=== PATIENT | male | born 1955 | race Two or more races ===

== ENCOUNTER 2018-04-23 06:17 | Inpatient (IN) | payer BC ==
[2018-04-19 10:30] LABS: Urine Bacteria NONE SEEN /hpf (None Seen); Urine Blood Negative /uL (Negative); Urine Specific Gravity 1.036 (1.001-1.035); Urine WBC <1 /hpf (0 - 3)
[2018-04-19 10:31] LABS: Basophils # (auto) 0 uL; Basophils % (auto) 0.4 % (0.0-2.0); Eosinophils # (auto) 0.1 uL; Eosinophils % (auto) 2.4 % (0.0-7.0); Hematocrit 48.5 % (41.0-53.0); Hemoglobin 16.2 g/dL (13.5-17.5); Lymphocytes # (auto) 1.9 uL; Lymphocytes % (auto) 34.6 % (10.0-50.0); Mean Corpuscular Hemoglobin 30.3 pg (28.0-32.0); Mean Corpuscular Hgb Conc. 33.4 g/dL (32.0-36.0); Mean Corpuscular Volume 90.8 fL (80.0-100.0); Monocytes # (auto) 0.6 uL; Monocytes % (auto) 11.4 % (0.0-12.0); Neutrophils # (auto) 2.8 uL; Neutrophils % (auto) 51.2 % (37.0-80.0); Nucleated Red Blood Cells % 0.1 %; Platelet Count (auto) 245 10^3/uL (140-450); Red Blood Cells 5.34 10^6/uL (4.5-5.90); Red Cell Distribution Width 13.9 % (11.8-14.3); White Blood Cell 5.5 10^3/uL (4.4-10.8)
[2018-04-19 10:38] LABS: INR 0.93 (0.9-1.15); Partial Thromboplastin Time 29.4 sec (23.78-33.04)
[2018-04-19 10:51] LABS: Potassium 3.9 mmol/L (3.5-5.1)
[2018-04-19 10:58] LABS: Albumin 3.7 g/dL (3.4-5.0); Bilirubin, Total 0.5 mg/dL (0.2-1.0); Calcium 8.6 mg/dL (8.5-10.1); Total Protein 7.2 g/dL (6.4-8.2)
[~2018-04-23] VITALS: Ht 172.7 cm; Wt 125.8 kg
[~2018-04-23 06:17] MED LIST: ALBUAER3 IN; EMPA1TAB PO; GLIP-115 PO
[2018-04-23] MEDS ORDERED: CLINDAMYCIN 600MG IV 50 ML IV ONE (06:57)
[2018-04-23] MEDS ORDERED: TETRACAINE 1% INJ 2 ML VIAL IJ ONE (07:13)
[2018-04-23] MEDS ORDERED: fentaNYL CITRATE 100 MCG/2 ML VL ONE (07:14)
[2018-04-23] MEDS ORDERED: ONDANSETRON HCL 4 MG/2 ML VIAL ONE (07:15)
[2018-04-23] MEDS ORDERED: PROPOFOL 10 MG/ML 20 ML IV ONE ×4 (07:15→09:55)
[2018-04-23] MEDS ORDERED: MORPHINE SULF(PF) 0.5MG/ML 10ML VIAL ONE (07:15)
[2018-04-23] MEDS ORDERED: MIDAZOLAM HCL 1MG/1ML-2 ML VIAL ONE ×2 (07:15→08:12)
[2018-04-23] MEDS ORDERED: SODIUM CHLORIDE LOCK 10 ML ONE (07:15)
[2018-04-23] MEDS ORDERED: TRANEXAMIC ACID 10 ML ONE ×2 (08:28→08:52)
[2018-04-23] MEDS ORDERED: METOCLOPRAMIDE HCL 5MG/ml INJ 2ml VIAL IV ONE (09:00)
[2018-04-23] MEDS ORDERED: diphenhdrAMINE HCL 50 MG/1 ML VL IV PRN (09:00)
[2018-04-23] MEDS ORDERED: HYDROmorphone HCL 2 MG/ML VL IV PRN (09:00)
[2018-04-23] MEDS ORDERED: NALOXONE HCL 0.4 MG/ML VIAL IV PRN (09:00)
[2018-04-23] MEDS ORDERED: ACCU-CHEK COMFORT CURVE STRIP VI ONE (09:00)
[2018-04-23] MEDS ORDERED: TEMAZEPAM 15 MG CAP PO PRN (11:45)
[2018-04-23] MEDS ORDERED: ACETAMINOPHEN 325 MG TAB PO PRN (11:45)
[2018-04-23] MEDS ORDERED: glipiZIDE 5 MG TAB PO SCH ×2 (12:00)
[2018-04-23] MEDS: CLINDAMYCIN 600MG IV 50 ML IV SCH ×2 (15:39→21:20)
[2018-04-23] MEDS: LACTATED RINGER'S 1,000 ML IV SCH (15:39)
[2018-04-23] MEDS: HYDROmorphone HCL 2 MG/ML VL IV PRN ×3 (15:40→22:34)
[2018-04-23] MEDS: SODIUM CHLOR 0.9% PF (SALINE LOCK) 10ML VIAL/SYR IV SCH ×2 (15:40→21:20)
[2018-04-23 15:48] VITALS: BP 123/72
[2018-04-23 17:24] VITALS: BP 123/73
[2018-04-23] MEDS: glipiZIDE 5 MG TAB PO SCH (17:52)
[2018-04-23 21:21] VITALS: BP 110/62
[2018-04-23] MEDS: oxyCODONE ER 10 MG TAB PO SCH (21:21)
[2018-04-23] MEDS: DOCUSATE SOD 100 MG CAP PO SCH (21:21)
[2018-04-24 01:58] VITALS: BP 110/62
[2018-04-24] MEDS: SODIUM CHLOR 0.9% PF (SALINE LOCK) 10ML VIAL/SYR IV SCH ×3 (05:22→21:07)
[2018-04-24] MEDS: CLINDAMYCIN 600MG IV 50 ML IV SCH (05:22)
[2018-04-24] MEDS: HYDROmorphone HCL 2 MG/ML VL IV PRN ×6 (05:23→22:00)
[2018-04-24 05:27] VITALS: BP 103/52
[2018-04-24] MEDS: ONDANSETRON HCL 4 MG/2 ML VIAL IV PRN ×4 (05:33→22:13)
[2018-04-24 07:27] LABS: Hematocrit 42.3 % (41.0-53.0); Hemoglobin 14.2 g/dL (13.5-17.5)
[2018-04-24] MEDS ORDERED: JARDIANCE 10MG PO SCH (08:00)
[2018-04-24 08:09] VITALS: BP 100/58
[2018-04-24] MEDS: glipiZIDE 5 MG TAB PO SCH ×2 (08:13→17:06)
[2018-04-24] MEDS: DOCUSATE SOD 100 MG CAP PO SCH ×2 (09:26→21:08)
[2018-04-24] MEDS: oxyCODONE ER 10 MG TAB PO SCH ×2 (09:26→21:09)
[2018-04-24] MEDS: LACTATED RINGER'S 1,000 ML IV SCH (09:26)
[2018-04-24] MEDS: ENOXAPARIN SOD 40 MG/0.4 ML SYRINGE SC SCH (09:26)
[2018-04-24 12:52] VITALS: BP 113/61
[2018-04-24] MEDS ORDERED: DEXTROSE (50%) 50ML SYRG IV PRN (13:15)
[2018-04-24] MEDS ORDERED: ALBUTEROL SULF 2.5 MG/0.5ML(0.5%) NEB SOLN NEB PRN (13:30)
[2018-04-24] MEDS: GABAPENTIN 100 MG CAP PO SCH ×3 (14:00→21:10)
[2018-04-24] MEDS: InsuLIN REG 1unit/0.01ml Soln (100units/ml) SC SCH ×2 (16:58→21:51)
[2018-04-24] MEDS: ACCU-CHEK COMFORT CURVE STRIP VI SCH ×2 (16:58→21:51)
[2018-04-24 17:00] VITALS: BP 111/73
[2018-04-24] MEDS: HYDROcodone-ACET 10/325MG TAB PO PRN ×2 (17:00→22:45)
[2018-04-24 21:25] VITALS: BP 110/66
[2018-04-25] MEDS: HYDROmorphone HCL 2 MG/ML VL IV PRN ×5 (04:26→19:47)
[2018-04-25] MEDS: LACTATED RINGER'S 1,000 ML IV SCH (04:27)
[2018-04-25 04:36] VITALS: BP 137/81
[2018-04-25] MEDS: GABAPENTIN 100 MG CAP PO SCH ×3 (05:50→21:50)
[2018-04-25] MEDS: SODIUM CHLOR 0.9% PF (SALINE LOCK) 10ML VIAL/SYR IV SCH ×3 (05:50→21:47)
[2018-04-25] MEDS: InsuLIN REG 1unit/0.01ml Soln (100units/ml) SC SCH ×4 (06:17→21:44)
[2018-04-25] MEDS: ACCU-CHEK COMFORT CURVE STRIP VI SCH ×4 (06:18→21:44)
[2018-04-25] MEDS: HYDROcodone-ACET 10/325MG TAB PO PRN (06:18)
[2018-04-25 06:53] LABS: Hemoglobin 13.2 g/dL (13.5-17.5)
[2018-04-25 07:25] LABS: Albumin 3.1 g/dL (3.4-5.0); Calcium 7.7 mg/dL (8.5-10.1); Potassium 3.8 mmol/L (3.5-5.1)
[2018-04-25 07:28] LABS: BUN/Creatinine Ratio 23.3; Bilirubin, Total 1.2 mg/dL (0.2-1.0); Total Protein 6.3 g/dL (6.4-8.2)
[2018-04-25] MEDS: DOCUSATE SOD 100 MG CAP PO SCH ×2 (09:18→21:49)
[2018-04-25] MEDS: EMPAGLIFLOZIN 10 MG PO SCH (09:19)
[2018-04-25] MEDS: glipiZIDE 5 MG TAB PO SCH ×2 (09:19→17:09)
[2018-04-25] MEDS: oxyCODONE ER 10 MG TAB PO SCH ×2 (09:19→21:49)
[2018-04-25] MEDS: ENOXAPARIN SOD 40 MG/0.4 ML SYRINGE SC SCH (09:20)
[2018-04-25 09:29] VITALS: BP 95/62
[2018-04-25 13:37] VITALS: BP 125/76
[2018-04-25 17:35] VITALS: BP 121/66
[2018-04-25 22:00] VITALS: BP 117/60
[2018-04-26] MEDS: HYDROmorphone HCL 2 MG/ML VL IV PRN ×4 (00:25→09:18)
[2018-04-26 04:43] VITALS: BP 119/69
[2018-04-26] MEDS: SODIUM CHLOR 0.9% PF (SALINE LOCK) 10ML VIAL/SYR IV SCH ×3 (05:23→22:08)
[2018-04-26] MEDS: GABAPENTIN 100 MG CAP PO SCH ×3 (05:40→22:00)
[2018-04-26] MEDS: ACCU-CHEK COMFORT CURVE STRIP VI SCH ×4 (06:03→22:03)
[2018-04-26] MEDS: InsuLIN REG 1unit/0.01ml Soln (100units/ml) SC SCH ×4 (06:03→22:00)
[2018-04-26 06:14] LABS: Hematocrit 39.7 % (41.0-53.0); Hemoglobin 13.8 g/dL (13.5-17.5)
[2018-04-26 09:00] VITALS: BP 118/67
[2018-04-26] MEDS: oxyCODONE ER 10 MG TAB PO SCH ×2 (09:17→22:03)
[2018-04-26] MEDS: DOCUSATE SOD 100 MG CAP PO SCH ×2 (09:17→22:03)
[2018-04-26] MEDS: ENOXAPARIN SOD 40 MG/0.4 ML SYRINGE SC SCH (09:17)
[2018-04-26] MEDS: EMPAGLIFLOZIN 10 MG PO SCH (09:18)
[2018-04-26] MEDS: glipiZIDE 5 MG TAB PO SCH ×2 (09:19→17:27)
[2018-04-26 12:35] VITALS: BP 113/68
[2018-04-26] MEDS: HYDROcodone-ACET 10/325MG TAB PO PRN ×2 (12:52→17:27)
[2018-04-26] MEDS: CLINDAMYCIN 600MG IV 50 ML IV SCH ×2 (14:30→22:03)
[2018-04-26] MEDS ORDERED: HYDROmorphone HCL 2 MG/ML VL IV PRN (14:45)
[2018-04-26 17:00] VITALS: BP 98/60
[2018-04-26 19:16] VITALS: BP 98/60
[2018-04-26 22:00] VITALS: BP 105/55
[2018-04-27] MEDS: HYDROcodone-ACET 10/325MG TAB PO PRN ×2 (03:45→11:22)
[2018-04-27 05:00] VITALS: BP 98/52
[2018-04-27] MEDS: SODIUM CHLOR 0.9% PF (SALINE LOCK) 10ML VIAL/SYR IV SCH ×2 (05:33→14:00)
[2018-04-27] MEDS: GABAPENTIN 100 MG CAP PO SCH ×2 (05:33→14:00)
[2018-04-27] MEDS: CLINDAMYCIN 600MG IV 50 ML IV SCH ×2 (05:35→14:00)
[2018-04-27] MEDS: ACCU-CHEK COMFORT CURVE STRIP VI SCH ×2 (06:04→12:01)
[2018-04-27] MEDS: InsuLIN REG 1unit/0.01ml Soln (100units/ml) SC SCH ×2 (06:04→11:30)
[2018-04-27 07:43] LABS: Hematocrit 40.8 % (41.0-53.0); Hemoglobin 13.8 g/dL (13.5-17.5)
[2018-04-27] MEDS: glipiZIDE 5 MG TAB PO SCH (08:38)
[2018-04-27] MEDS: EMPAGLIFLOZIN 10 MG PO SCH (08:39)
[2018-04-27 09:02] VITALS: BP 100/62
[2018-04-27] MEDS: DOCUSATE SOD 100 MG CAP PO SCH (09:30)
[2018-04-27] MEDS: oxyCODONE ER 10 MG TAB PO SCH (09:30)
[2018-04-27] MEDS: ENOXAPARIN SOD 40 MG/0.4 ML SYRINGE SC SCH (09:31)
[2018-04-27 13:23] VITALS: BP 114/65
[2018-04-27 14:28] VITALS: BP 114/65
[2018-04-27] MEDS ORDERED: RIV15T PO (15:01)
[2018-04-27] MEDS ORDERED: HYDR-4683 PO (15:01)
[2018-04-27] MEDS ORDERED: CEPH250C PO (15:01)
== END 2018-04-27 19:26 | disposition home or self-care (01) | DRG 470 ==
LOC: SUR 06:17 → WEST WING 12:33
PROVIDERS: ADMIT Orthopaedic Surgery; ATTEND Internal Medicine
PROC: 0MBN0ZZ Excision of Right Knee Bursa and Ligament, Open Approach (ICD-10-PCS; 2018-04-23)
PROC: 0KNQ0ZZ Release Right Upper Leg Muscle, Open Approach (ICD-10-PCS; 2018-04-23)
PROC: 0SRC0J9 Replacement of Right Knee Joint with Synthetic Substitute, Cemented, Open Approach (ICD-10-PCS; principal; 2018-04-23 07:00)
PROC: 5A09357 Assistance with Respiratory Ventilation, Less than 24 Consecutive Hours, Continuous Positive Airway Pressure (ICD-10-PCS; 2018-04-24)
PROC: 5A09357 Assistance with Respiratory Ventilation, Less than 24 Consecutive Hours, Continuous Positive Airway Pressure (ICD-10-PCS; 2018-04-25)
PROC: 5A09357 Assistance with Respiratory Ventilation, Less than 24 Consecutive Hours, Continuous Positive Airway Pressure (ICD-10-PCS; 2018-04-26)
PROC: 5A09357 Assistance with Respiratory Ventilation, Less than 24 Consecutive Hours, Continuous Positive Airway Pressure (ICD-10-PCS; 2018-04-27)
DX: M17.11 Unilateral primary osteoarthritis, right knee (principal); Z68.42 Body mass index [BMI] 45.0-49.9, adult; E11.9 Type 2 diabetes mellitus without complications; E66.01 Morbid (severe) obesity due to excess calories; G89.29 Other chronic pain; J44.9 Chronic obstructive pulmonary disease, unspecified; M70.41 Prepatellar bursitis, right knee
CPT/HCPCS: 36415; 73560; 80053; 81001; 82962; 83036; 85014; 85018; 85025; 85610; 85730; 86850; 86900; 86901; 94660; 97110; 97116; 97163; 97530; G0378; J1815; J2250; J2405; J2704; J3490